=== PATIENT | male | born 1980 | race Caucasian/White ===

== ENCOUNTER 2021-12-18 09:21 | Emergency (ER) | payer SELFPAY ==
[2021-12-18 09:26] VITALS: BP 154/95; PULSE 69; RESP 16; TEMP 36.6; O2SAT 100; BMI 24.3
[2021-12-18 09:28] VITALS: BP 154/95; PULSE 83; O2SAT 99
[2021-12-18 09:30] VITALS: BP 149/87; PULSE 74; RESP 21; O2SAT 100
--- NOTE | 2021-12-18 09:31 | DI.RAD.S_ITS ---
PROCEDURE: XR CHEST 1V INDICATIONS: chest pain TECHNIQUE: One view of the chest was acquired. COMPARISON: None. FINDINGS: Surgical changes and devices: None. Lungs and pleura: Lungs are clear. No pleural effusions or pneumothorax. Mediastinum: Mediastinal contours appear normal. Heart size is normal. Bones and chest wall: No suspicious bony lesions. Overlying soft tissues appear unremarkable. IMPRESSION: No acute cardiopulmonary disease. Dictated by: Poncho Chiang M.D. on 12/18/2021 at 10:07 Approved by: Poncho Chiang M.D. on 12/18/2021 at 10:07
[2021-12-18 10:00] VITALS: BP 143/92; PULSE 63; RESP 17; O2SAT 97
[2021-12-18 10:07] LABS: Alanine Aminotransferase 29 IU/L (<50); Albumin 4.4 g/dL (3.5-5.0); Albumin Globulin Ratio 1.2 (1.0-2.8); Alkaline Phosphatase 112 U/L (38-126); Aspartate Aminotransferase 31 IU/L (17-59); BUN Creatinine Ratio 13.1 (6-22); Bilirubin Total 0.6 mg/dL (0.2-1.3); Blood Urea Nitrogen 14 mg/dL (9-20); Calcium 8.9 mg/dL (8.4-10.2); Carbon Dioxide 26 mmol/L (22-32); Chloride 101 mmol/L (98-107); Creatine Kinase 130 U/L (55-170); Estimated Glomerular Filt Rate > 60 mL/min (>60); Globulin 3.6 g/dL (1.7-4.1); Glucose 90 mg/dL (70-100); HEMOLYSIS < 15 (0-50); Lipase 40 U/L (23-300); Magnesium 2.1 mg/dL (1.6-2.3); Sodium 137 mmol/L (137-145)
[2021-12-18 10:10] LABS: Add Manual Diff / Slide Review NO; Basophils Absolute Auto 100 /uL (0-100); Basophils Percent Auto 0.7 % (0-2); Eosinophils Absolute Auto 0 /uL (0-450); Eosinophils Percent Auto 0.4 % (2-4); Hematocrit 40.8 % (41-53); Hemoglobin 13.9 g/dL (13.5-17.5); Lymphocytes Absolute Auto 1900 /uL (1100-4500); Lymphocytes Percent Auto 23.8 % (25-40); Mean Corpuscular Hemoglobin 31.1 PG (26-34); Mean Corpuscular Volume 91.4 fL (80-100); Monocytes Absolute Auto 700 /uL (0-900); Monocytes Percent Auto 8.9 % (3-14); Neutrophils Absolute Auto 5400 /uL (1500-7000); Neutrophils Percent Auto 66.2 % (50-75); Platelet Count 279 X10^3/uL (150-400); Red Blood Cell Count 4.47 X10^6/uL (4.5-5.9); Red Cell Distribution Width 13.3 % (11.6-14.8); White Blood Cell Count 8.1 X10^3/uL (4.5-11.0)
[2021-12-18 10:17] LABS: Troponin I < 0.012 ng/mL (0.01-0.034)
[2021-12-18 10:21] LABS: Creatine Kinase MB 2.58 ng/mL (<2.37)
[2021-12-18 10:30] VITALS: BP 141/83; PULSE 61; RESP 17; O2SAT 98
[2021-12-18 11:00] VITALS: BP 146/92; PULSE 67; RESP 16; O2SAT 99
--- NOTE | 2021-12-18 11:29 | ED.CHESTPAIN ---
HPI - Chest Pain General Chief Complaint: Chest Pain Stated Complaint: sharp pain in chest, think it's my lung Time Seen by Provider: 12/18/21 11:29 Source: patient Mode of arrival: Ambulatory Limitations: no limitations Related Data Allergies Allergy/AdvReac Type Severity Reaction Status Date / Time No Known Drug Allergies Allergy Verified 12/18/21 09:31 Patient History Social History Smoking Status: Former smoker Smoking Status: Former smoker alcohol intake frequency: holidays/special occasions only Substance Use Type: does not use Exam Initial Vital Signs Initial Vital Signs: Vital Signs Temperature 97.9 F 12/18/21 09:26 Pulse Rate 69 12/18/21 09:26 Respiratory Rate 16 12/18/21 09:26 Blood Pressure 154/95 H 12/18/21 09:26 Pulse Oximetry 100 12/18/21 09:26 Oxygen Delivery Method 12/18/21 09:26 Course Orders Ordered: ED Orders 12/18/21 09:31 XR chest 1V Stat EKG-12 Lead Stat 12/18/21 09:46 Complete Blood Count AUTO DIFF Stat Comprehensive Metabolic Panel Stat Lipase Stat Magnesium Stat Troponin & CK Cardiac Panel Stat Vital Signs Vital signs: Vital Signs - 8 hr 12/18/21 09:26 12/18/21 09:28 12/18/21 09:28 Temperature 97.9 F Pulse Rate 69 83 Respiratory Rate 16 Blood Pressure 154/95 H 154/95 H Pulse Oximetry 100 99 Oxygen Delivery Method Room Air 12/18/21 09:30 12/18/21 09:30 12/18/21 10:00 Temperature Pulse Rate 74 Respiratory Rate 21 Blood Pressure 149/87 H 143/92 H Pulse Oximetry 100 Oxygen Delivery Method 12/18/21 10:00 12/18/21 10:30 12/18/21 10:30 Temperature Pulse Rate 63 61 Respiratory Rate 17 17 Blood Pressure 141/83 H Pulse Oximetry 97 98 Oxygen Delivery Method 12/18/21 11:00 12/18/21 11:00 Temperature Pulse Rate 67 Respiratory Rate 16 Blood Pressure 146/92 H Pulse Oximetry 99 Oxygen Delivery Method Room Air MDM - Chest Pain Lab Data Result diagrams: 12/18/21 09:46 12/18/21 09:46 Labs: Lab Results 12/18/21 12/18/21 Range/Units 09:46 09:46 WBC 8.1 (4.5-11.0) X10^3/uL RBC 4.47 L (4.5-5.9) X10^6/uL Hgb 13.9 (13.5-17.5) g/dL Hct 40.8 L (41-53) % MCV 91.4 (80-100) fL MCH 31.1 (26-34) PG MCHC 34.0 (30-36) % RDW 13.3 (11.6-14.8) % Plt Count 279 (150-400) X10^3/uL Neut % (Auto) 66.2 (50-75) % Lymph % (Auto) 23.8 L (25-40) % [place] % (Auto) 8.9 (3-14) % Eos % (Auto) 0.4 L (2-4) % Baso % (Auto) 0.7 (0-2) % Neut # (Auto) 5400 (5735-2622) /uL Lymph # (Auto) 1900 (7964-0961) /uL [place] # (Auto) 700 (0-900) /uL Eos # (Auto) 0 (0-450) /uL Baso # (Auto) 100 (0-100) /uL Sodium 137 (137-145) mmol/L Potassium 4.0 (3.4-5.1) mmol/L Chloride 101 (98-107) mmol/L Carbon Dioxide 26 (22-32) mmol/L BUN 14 (9-20) mg/dL Creatinine 1.07 (0.66-1.25) mg/dL Estimated GFR > 60 (>60) mL/min BUN/Creatinine Ratio 13.1 (6-22) Glucose 90 (70-100) mg/dL Calcium 8.9 (8.4-10.2) mg/dL Magnesium 2.1 (1.6-2.3) mg/dL Total Bilirubin 0.6 (0.2-1.3) mg/dL AST 31 (17-59) IU/L ALT 29 (<50) IU/L Alkaline Phosphatase 112 (38-126) U/L Total Creatine Kinase 130 (55-170) U/L CK-MB (CK-2) 2.58 H (<2.37) ng/mL CK-MB (CK-2) Rel Index 2.0 (1.5-5.0) % Troponin I < 0.012 (0.01-0.034) ng/mL Total Protein 8.0 (6.3-8.2) g/dL Albumin 4.4 (3.5-5.0) g/dL Globulin 3.6 (1.7-4.1) g/dL Albumin/Globulin Ratio 1.2 (1.0-2.8) Lipase 40 (23-300) U/L Imaging Data Chest x-ray: Radiologist's Impression: [address] [id number] XRay Report Signed Patient: Rodolfo Moseley MR#: [id number] : 1980 Acct:[id number] Age/Sex: 41 / M Date of Service: 12/18/21 Loc: ED Accession Number: [id number] ?? Procedure: XR chest 1V Ordering Provider: Kylah Mcnamara D.O. PROCEDURE:? XR CHEST 1V ? INDICATIONS:? chest pain ? TECHNIQUE:? One view of the chest was acquired.? ? COMPARISON:? None. ? FINDINGS:? ? Surgical changes and devices:? None.? ? Lungs and pleura:? Lungs are clear.? No pleural effusions or pneumothorax.? ? Mediastinum:? Mediastinal contours appear normal.? Heart size is normal.? ? Bones and chest wall:? No suspicious bony lesions.? Overlying soft tissues appear unremarkable.? ? IMPRESSION:? No acute cardiopulmonary disease. ? ? Dictated by: Poncho Chiang M.D. on 12/18/2021 at 10:07 ? ? Approved by: Poncho Chiang M.D. on 12/18/2021 at 10:07?? ECG Data Attestation: I personally reviewed and interpreted this ECG as follows: Prior ECG tracings: not available for review Interpretation: Sinus rhythm, rate of 60 6p are 164 QRS of 90 [address]TC [address] No acute [address] changes appreciated MDM Narrative Medical decision making narrative: Labs, imaging and EKG reviewed. Patient left without being seen. Discharge Plan Departure Patient Disposition: Left Without Being Seen Clinical Impression: Patient left without being seen
== END 2021-12-18 11:29 | disposition left against medical advice (07) ==
PROVIDERS: Emergency Provider Emergency Medicine
DX: R07.9 Chest pain, unspecified (principal)
CPT/HCPCS: 36415; 71045; 80053; 82550; 82553; 83690; 83735; 84484; 85025; 93005; 93010; 99284